=== PATIENT | female | born 1960 | race Caucasian/White ===

== ENCOUNTER → 2021-12-23 | Day surgery (SDC) | payer MEDICARE, OTHER ==
[~2021-12-23] VITALS: Ht 160 cm; Wt 55.8 kg
[~2021-12-23] MED LIST: ACETAMINOPHEN500 M1 PO; COLACE100 MG PO; IBUPROFEN800 MG PO; MOTRIN600 MG PO; ONDANSETRON ODT4 MG PO; OXY-IR 5MG5 MG PO; PERCOCET 5-3251 EACH PO; ROBAXIN750 MG PO
[2021-12-23 10:23] LABS: ALBUMIN 4.2 g/dL (3.4-5.0); BILIRUBIN - TOTAL 0.5 mg/dL (0.2-1.0); BUN/CREAT RATIO (CALC) 20.6 RATIO; CREATININE 0.63 mg/dL (0.51-0.95); GLOBULIN (CALCULATION) 3.2 g/dL; POTASSIUM 3.8 mmol/L (3.5-5.1); TOTAL PROTEIN 7.4 g/dL (6.4-8.2)
[2021-12-23 10:44] LABS: INR 1.03 (0.9-1.2); PROTHROMBIN TIME 13.2 SECONDS (11.9-13.9); PTT 26.7 SECONDS (24.9-34.6)
== END | disposition home or self-care (01) ==
LOC: FAS 09:31
PROVIDERS: Anesthesiology; Student in an Organized Health Care Education/Training Program
DX: K80.10 Calculus of gallbladder with chronic cholecystitis without obstruction (principal); Z88.6 Allergy status to analgesic agent; Z87.891 Personal history of nicotine dependence
CPT/HCPCS: 36415; 80053; 82150; 83690; 85610; 85730; 93005; J1100; J1170; J1335; J1644; J2250; J2405; J2704; J3010; J7120